=== PATIENT | male | born 2000 | race Native Hawaiian/Other Pacific Islander ===

== ENCOUNTER 2019-05-02 12:53 | Outpatient (CLI) | payer OTHER | END 2019-05-02 12:58 | disposition short-term general hospital (02) | LOC: AMB 12:53 | DX: R19.7 Diarrhea, unspecified (principal); R10.32 Left lower quadrant pain | CPT/HCPCS: A0425; A0429 ==

== ENCOUNTER 2019-05-02 13:09 | Emergency (ER) | payer OTHER ==
[~2019-05-02] VITALS: Ht 167.6 cm; Wt 126.1 kg
[2019-05-02 15:13] LABS: PLATELET COUNT 266 K/uL (142-355)
[2019-05-02 15:22] LABS: POTASSIUM 3.7 mmol/L (3.6-5.2)
[2019-05-02 16:46] VITALS: BP 129/87; TEMP 98.2
== END 2019-05-02 16:35 | disposition home or self-care (01) ==
LOC: ED 13:09
PROVIDERS: Family Medicine
DX: K52.9 Noninfective gastroenteritis and colitis, unspecified (principal)
CPT/HCPCS: 80053; 81000; 85027; 99283

== ENCOUNTER 2019-05-05 00:41 | Emergency (ER) | payer OTHER ==
[~2019-05-05] VITALS: Ht 170.2 cm; Wt 123.8 kg
[2019-05-05 01:26] VITALS: BP 147/74; TEMP 98.2
== END 2019-05-05 01:20 | disposition home or self-care (01) ==
LOC: ED 00:41
DX: F43.10 Post-traumatic stress disorder, unspecified (principal)
CPT/HCPCS: 99283

== ENCOUNTER 2019-05-06 10:36 | Emergency (ER) | payer OTHER ==
[~2019-05-06] VITALS: Ht 170.2 cm; Wt 123.8 kg
[2019-05-06 12:04] LABS: PLATELET COUNT 253 K/uL (142-355)
[2019-05-06 12:12] LABS: POTASSIUM 4.2 mmol/L (3.6-5.2)
[2019-05-06 16:50] VITALS: BP 127/72; TEMP 98
== END 2019-05-06 16:50 | disposition home or self-care (01) ==
LOC: ED 10:36
PROVIDERS: Family Medicine
DX: E46 Unspecified protein-calorie malnutrition (principal); Z59.0 Homelessness
CPT/HCPCS: 36415; 80053; 80307; 80320; 80329; 81000; 85027; 93005; 99285

== ENCOUNTER 2019-05-08 03:02 | Emergency (ER) | payer OTHER ==
[~2019-05-08] VITALS: Ht 170.2 cm; Wt 125.2 kg
[2019-05-08 03:59] LABS: PLATELET COUNT 287 K/uL (142-355)
[2019-05-08 04:07] LABS: POTASSIUM 3.3 mmol/L (3.6-5.2)
[2019-05-08 05:36] VITALS: BP 124/88; TEMP 98
== END 2019-05-08 05:40 | disposition home or self-care (01) ==
LOC: ED 03:02
PROVIDERS: Emergency Medicine
DX: G40.89 Other seizures (principal); R51 Headache
CPT/HCPCS: 80053; 80307; 81000; 85027; 99283

== ENCOUNTER 2019-05-24 03:36 | Emergency (ER) | payer OTHER ==
[~2019-05-24] VITALS: Ht 160 cm; Wt 125.2 kg
[2019-05-24 03:38] VITALS: TEMP 97.9
[2019-05-24 04:44] LABS: PLATELET COUNT 241 K/uL (142-355)
[2019-05-24 04:54] LABS: POTASSIUM 3.4 mmol/L (3.6-5.2)
[2019-05-24 06:15] VITALS: BP 112/62
== END 2019-05-24 06:15 | disposition home or self-care (01) ==
LOC: ED 03:36
PROVIDERS: Family Medicine
DX: I95.2 Hypotension due to drugs (principal); E87.6 Hypokalemia; T50.905A Adverse effect of unspecified drugs, medicaments and biological substances, initial encounter
CPT/HCPCS: 80053; 85027; 96360; 96361; 99284

== ENCOUNTER 2020-08-24 20:48 | Emergency (ER) | payer OTHER ==
[~2020-08-24] VITALS: Ht 167.6 cm; Wt 122.5 kg
[2020-08-24 22:48] VITALS: BP 117/76; TEMP 98.2
== END 2020-08-24 22:48 | disposition home or self-care (01) ==
LOC: ED 20:48
DX: S93.692A Other sprain of left foot, initial encounter (principal)
CPT/HCPCS: 99283